=== PATIENT | female | born 1990 | race Caucasian/White ===

== ENCOUNTER 2024-11-14 20:56 | Inpatient (IN) ==
[2024-11-14 21:43] LABS: Hematocrit (blood only) 42.5 % (37.0-47.0); Hemoglobin 14.6 g/dl (12.0-16.0); Immature Granulocytes # (auto) 0.02 K/uL (0.01-0.20); Immature Granulocytes % (auto) 0.3 %; Mean Corpuscular Hemoglobin 30.2 pg (25.0-34.0); Mean Corpuscular Volume 88.0 fL (80.0-100.0); Platelet Count 254 K/uL (130-400); RDW Standard Deviation 41.6 fL (36.4-46.3); Red Blood Count 4.83 M/uL (4.20-5.40); White Blood Count 7.64 K/ul (4.8-10.8)
[2024-11-14 22:01] LABS: Alanine Aminotransferase 61.0 U/L (7-52); Albumin Globulin Ratio 1.5 (0.9-2); Alkaline Phosphatase 68.0 U/L (34-104); Anion Gap 12.0 (3-11); Bilirubin,Total 0.8 mg/dl (0.2-1.0); Blood Urea Nitrogen 14.0 mg/dl (6-23); Calcium 9.6 mg/dl (8.6-10.3); Carbon Dioxide 24.0 mmol/L (21-32); Chloride 110.0 mmol/L (98-107); Creatinine Clr Calc Pharmacy 92.9 ml/min; Globulin 2.9 gm/dl (2.5-4.0); Glucose 127.0 mg/dl (70-99(Fasting)); Potassium 3.4 mmol/L (3.5-5.1); Sodium 146.0 mmol/L (136-145); Total Protein 7.3 gm/dl (6.0-8.3)
[2024-11-14] MEDS: ACETAMINOPHEN 325 MG TAB PO STA (22:14)
[2024-11-14] MEDS: SODIUM CHLORIDE 0.9% 1,000 ML IV ONE (22:14)
[2024-11-14 22:18] LABS: Creatine Kinase 70.0 U/L (26-192); Magnesium 2.0 mg/dl (1.7-2.4)
[2024-11-14 22:20] LABS: Pregnancy Test, Serum Negative (Negative)
[2024-11-14 22:33] LABS: Thyroid Stimulating Hormone 0.113 uIu/ml (0.300-4.500)
[2024-11-14] MEDS: DROPERIDOL 5 MG/2 ML VIAL IV STA (22:55)
[2024-11-14 23:04] LABS: Amphetamines+Metham, Urine Neg (Neg); MDMA (Ecstacy), Urine Neg (Neg); Marijuana, Urine Neg (Neg)
--- NOTE | 2024-11-14 23:21 | Emergency Department Note ---
History of Present Illness General Chief complaint: Detox Request Stated complaint: ALC WITHDRAWL Time Seen by Provider: 11/14/24 21:29 History of Present Illness This 34-year-old female who is homeless from [place] presents ER requesting detox. Patient states she uses trank, crack cocaine and fentanyl. She last used yesterday. Patient denies chest pain, dyspnea, abdominal pain, flulike illness. She states she smokes all of her drugs. Patient wants to be medically admitted for detox. She does not want to go to a rehab facility. Home Medications Medication Instructions Recorded Confirmed Type No Known Home Medications 11/14/24 11/14/24 History Allergies Allergy/AdvReac Type Severity Reaction Status Date / Time hydrocodone [From Vicodin] AdvReac Intermediate Nausea Verified 11/14/24 23:00 Past Med/Surg History Problem List (Updated 11/14/24 @ 23:21 by Criss Walker PA-C) Candidiasis (Acute) Polysubstance abuse (Acute) Social History Smoking Status: Current every day smoker Tobacco Type: Cigarettes Hx Substance Use: Yes Preferred Language: [place] Feels Safe at Home: Yes Review of Systems A total of 10 systems reviewed and were otherwise negative Physical Exam Vital Signs Vital Signs - 24 hr 11/14/24 21:01 11/14/24 21:14 11/14/24 21:30 Temperature 37.3 C Temperature Source Oral Pulse Rate 66 76 Pulse Rate from SpO2 Sensor 75 Pulse Rhythm Regular Pulse Strength Normal Respiratory Rate 18 22 Respiratory Effort / Characteristics Non-Labored Spontaneous Respiratory Depth Normal Respiratory Pattern Regular Blood Pressure 154/95 H 137/69 Blood Pressure Mean 114 106 Blood Pressure Position Lying Pulse Oximetry 100 100 99 Oxygen Delivery Method Room Air Room Air Room Air Oxygen Flow Rate 0 Sepsis Recent Fever Within 48 Hours No Sepsis New/Unexplained Change in Mental Status N/A Sepsis Action Taken by Nursing No Action Required 11/14/24 21:33 11/14/24 21:45 11/14/24 21:45 Temperature 36.9 C Temperature Source Oral Pulse Rate 74 76 Pulse Rate from SpO2 Sensor 76 Pulse Rhythm Pulse Strength Respiratory Rate 22 Respiratory Effort / Characteristics Respiratory Depth Respiratory Pattern Blood Pressure 130/76 Blood Pressure Mean 94 Blood Pressure Position Pulse Oximetry 99 Oxygen Delivery Method Room Air Oxygen Flow Rate Sepsis Recent Fever Within 48 Hours Sepsis New/Unexplained Change in Mental Status Sepsis Action Taken by Nursing 11/14/24 22:12 11/14/24 22:30 11/14/24 23:06 Temperature 36.7 C Temperature Source Oral Pulse Rate 90 92 H Pulse Rate from SpO2 Sensor 90 90 Pulse Rhythm Pulse Strength Respiratory Rate 22 20 Respiratory Effort / Characteristics Respiratory Depth Respiratory Pattern Blood Pressure 141/101 H 151/99 H Blood Pressure Mean 110 116 Blood Pressure Position Pulse Oximetry 99 99 Oxygen Delivery Method Room Air Room Air Oxygen Flow Rate Sepsis Recent Fever Within 48 Hours Sepsis New/Unexplained Change in Mental Status Sepsis Action Taken by Nursing 11/14/24 23:09 11/14/24 23:30 11/15/24 00:00 Temperature Temperature Source Pulse Rate 109 H 89 105 H Pulse Rate from SpO2 Sensor 109 H 88 107 H Pulse Rhythm Pulse Strength Respiratory Rate 22 22 22 Respiratory Effort / Characteristics Respiratory Depth Respiratory Pattern Blood Pressure 146/84 H 142/86 H 148/84 H Blood Pressure Mean 104 108 105 Blood Pressure Position Pulse Oximetry 100 100 100 Oxygen Delivery Method Room Air Room Air Room Air Oxygen Flow Rate Sepsis Recent Fever Within 48 Hours Sepsis New/Unexplained Change in Mental Status Sepsis Action Taken by Nursing 11/15/24 00:33 11/15/24 01:06 Temperature Temperature Source Pulse Rate 120 H 104 H Pulse Rate from SpO2 Sensor 120 H 102 H Pulse Rhythm Pulse Strength Respiratory Rate 22 22 Respiratory Effort / Characteristics Respiratory Depth Respiratory Pattern Blood Pressure 161/96 H 155/86 H Blood Pressure Mean 117 109 Blood Pressure Position Pulse Oximetry 98 100 Oxygen Delivery Method Room Air Room Air Oxygen Flow Rate Sepsis Recent Fever Within 48 Hours Sepsis New/Unexplained Change in Mental Status Sepsis Action Taken by Nursing VITALS: Vitals are noted on the nurse's note and reviewed by myself. Vital signs stable. GENERAL: White female disheveled, in no acute distress, nondiaphoretic, well- developed well-nourished. SKIN: Abdomen with candidiasis, the rest of the skin was without rashes, erythema, edema, or bruising. There is no tenting of the skin. Capillary reflex less than 2 seconds. HEAD: Normocephalic atraumatic. EARS: External auditory canals clear EYES: Pupils equal round and reactive to light and accommodation. Conjunctivae without injection, sclerae without icterus. Extraocular movements intact. NOSE: Patent, no discharge. MOUTH: Mucous membranes moist. Pharynx without erythema or exudate. Uvula midline. Airway patent. Tongue does not deviate. NECK: Supple without nuchal rigidity. No lymphadenopathy. No thyromegaly. Cervical spine is nontender. No JVD. HEART: Regular rate and rhythm LUNGS: Clear to auscultation bilaterally without wheezes, rales or rhonchi. No retractions or accessory muscle use. ABDOMEN: Positive bowel sounds x 4. Normal tympanic percussion. Soft, nontender, without masses or organomegaly. Schmidt sign negative. No guarding or rebound tenderness. No CVA tenderness MUSCULOSKELETAL: No muscle atrophy, erythema, or edema noted. NEURO: Patient was alert and oriented to person place and time. Normal sensation to light and sharp touch. No focal neurological deficits. Course Administered Medications Potassium Chloride 20 meq/ (Lactated Ringer's) 1,010 mls @ 60 mls/hr IV .[id number] ONE Stop: 11/15/24 17:19 Last Admin: 11/15/24 00:39 Dose: 60 mls/hr Documented By: JUSTYN Discontinued Medications Acetaminophen (Acetaminophen 325 Mg Tab) 650 mg PO NOW STA Stop: 11/14/24 21:58 Last Admin: 11/14/24 22:14 Dose: 650 mg Documented By: JUSTYN Droperidol (Droperidol 5 Mg/2 Ml Vial) 1.25 mg IV ONE STA Stop: 11/14/24 22:42 Last Admin: 11/14/24 22:55 Dose: 1.25 mg Documented By: JUSTYN Sodium Chloride (Nss) 1,000 mls @ 999 mls/hr IV .[id number] ONE Stop: 11/14/24 22:57 Last Infusion: 11/14/24 23:15 Dose: Infused Documented By: Admin: 11/14/24 22:14 Dose: 999 mls/hr Documented By: JUSTYN Ioversol (Optiray 320 125ml) 125 ml IV ONCE ONE Stop: 11/14/24 23:59 Last Admin: 11/14/24 23:59 Dose: 118 ml Documented By: KANDIS Lorazepam (Lorazepam 2 Mg/1 Ml Vial) 0.25 mg IV NOW STA Stop: 11/15/24 00:46 Last Admin: 11/15/24 00:58 Dose: 0.25 mg Documented By: JUSTYN Medical Decision Making Medical Records Attestation: I reviewed the patient's medical records. Home Medications Current Medication List: was personally reviewed by me Laboratory Data Attestation: I reviewed the patient's lab results. 11/14/24 21:08 11/14/24 21:08 Lab Results 11/14/24 11/14/24 11/14/24 Range/Units 21:08 22:55 Unknown WBC 7.64 (4.8-10.8) K/ul RBC 4.83 (4.20-5.40) M/uL Hgb 14.6 (12.0-16.0) g/dl Hct 42.5 (37.0-47.0) % MCV 88.0 (80.0-100.0) fL MCH 30.2 (25.0-34.0) pg MCHC 34.4 (32.0-36.0) g/dL RDW Std Deviation 41.6 (36.4-46.3) fL RDW Coeff of Arsenio 13.0 (11.5-14.5) % Plt Count 254 (130-400) K/uL MPV 9.7 (9.4-12.4) fL Immature Gran % (Auto) 0.3 % Neut % (Auto) 85.9 % Lymph % (Auto) 9.8 % [place] % (Auto) 3.7 % Eos % (Auto) 0.0 % Baso % (Auto) 0.3 % Neut # (Auto) 6.57 H (1.40-6.50) K/uL Lymph # (Auto) 0.75 L (1.20-3.40) K/uL [place] # (Auto) 0.28 (0.11-0.59) K/uL Eos # (Auto) 0.00 (0.00-0.50) K/uL Baso # (Auto) 0.02 (0.00-0.20) K/uL Immature Gran # (Auto) 0.02 (0.01-0.20) K/uL Sodium 146 H (136-145) mmol/L Potassium 3.4 L (3.5-5.1) mmol/L Chloride 110 H (98-107) mmol/L Carbon Dioxide 24 (21-32) mmol/L Anion Gap 12 H (3-11) BUN 14 (6-23) mg/dl Creatinine 0.61 (0.6-1.2) mg/dl Est Cr Clr Drug Dosing 92.9 ml/min eGFR 120.24 BUN/Creatinine Ratio 23.0 H (10-20) Glucose 127 H (70-99(Fasting)) mg/dl Lactate 1.9 (0.4-2.0) mmol/L Calcium 9.6 (8.6-10.3) mg/dl Magnesium 2.0 (1.7-2.4) mg/dl Total Bilirubin 0.8 (0.2-1.0) mg/dl AST 32 (13-39) U/L ALT 61 H (7-52) U/L Alkaline Phosphatase 68 (34-104) U/L Total Creatine Kinase 70 (26-192) U/L Total Protein 7.3 (6.0-8.3) gm/dl Albumin 4.4 (3.4-5.0) gm/dl Globulin 2.9 (2.5-4.0) gm/dl Albumin/Globulin Ratio 1.5 (0.9-2) TSH 0.113 L (0.300-4.500) uIu/ml Free T4 0.85 (0.61-1.60) ng/dl Prolactin 8.92 ng/ml HCG, Qual Negative (Negative) Urine Opiates Screen Neg (Neg) Ur Methadone, Qual Neg (Neg) Urine Fentanyl Screen Pos H (Neg) Urine Barbiturates Neg (Neg) Ur Phencyclidine (PCP) Neg (Neg) U Amphetamin/Meth Scrn Neg (Neg) MDMA (Ecstasy) Screen Neg (Neg) U Benzodiazepines Scrn Pos H (Neg) Ur Cocaine Metabolite Pos H (Neg) U Marijuana (THC) Screen Neg (Neg) Imaging Data Attestation: I personally reviewed and interpreted this imaging study as follows: Radiologist's Impression: Head CT 11/14/24 23:12 EXAM: CT head/brain wo con CLINICAL HISTORY: sz, rodriguez TECHNIQUE: Multiple axial images are obtained from the skull base to the vertex without contrast. CT scan was performed according to ALARA (as low as reasonably achievable). COMPARISON: None. FINDINGS: The brain shows normal morphology, attenuation, and volume for age. No evidence of space occupying lesion, hemorrhage, edema, mass effect, midline shift, extra axial collection, or hydrocephalus is noted. Ventricles, sulci, and basal cisterns are symmetric and normal in size and configuration. The chase-white matter differentiation is preserved. Visualized paranasal sinuses and mastoid air cells are well aerated. Orbital contents are within normal limits. Bony structures are intact. IMPRESSION: 1. No evidence of acute intracranial abnormality is demonstrated Electronically signed by Cali Vance 11-15-2024 01:04 AM Abdomen/Pelvis CT 11/14/24 23:13 EXAM: CT abd pelvis IV con only CLINICAL HISTORY: abd pain TECHNIQUE: Contiguous axial images were obtained from the level of the diaphragm to the pubic symphysis with intravenous contrast. Coronal and sagittal reconstructions were likewise performed and indicated to increase the sensitivity for detecting clinically relevant pathology. If IV contrast material had not been administered, the likelihood of detecting abnormalities relevant to the patient's condition would have been substantially decreased. CT scan was performed according to ALARA (as low as reasonably achievable). COMPARISON: None. FINDINGS: The visualized lung bases are clear. The liver is normal in size and attenuation. No focal liver lesions are seen. There is no intra or extrahepatic biliary ductal dilatation. Hepatic vasculature is patent. The gallbladder is present. The spleen, pancreas, and adrenal glands are unremarkable. The kidneys are normal in size and attenuation. There is no hydronephrosis or perinephric fat stranding. No renal calculi or renal masses are identified. Small simple right renal cortical cyst. The ureters are normal in caliber and no ureteral calculi are seen. The bladder is normal in contour. Pelvic viscera are unremarkable. No focal or diffuse bowel wall thickening or evidence of bowel obstruction is identified. No imaging evidence of appendicitis. Abdominal and pelvic vasculature is patent. No adenopathy or fluid collections are seen. No aggressive appearing osseous lesions are identified. Colonic fecal and gaseous distension diffuse subcutaneous fat stranding is seen in pelvis and upper thighs IMPRESSION: Small simple right renal cortical cyst.- Bosniak type I . Colonic fecal and gaseous distension - possibility of constipation. No acute intra-abdominal abnormalities seen. Electronically signed by Cali Vance 11-15-2024 01:29 AM Chest CTA 11/14/24 23:13 EXAM: CT angio chest PE protocol CLINICAL HISTORY: cp sob TECHNIQUE: Contiguous axial images were obtained from the neck base through the upper abdomen following intravenous administration of iodinated contrast material. Angiographic images were processed, 3D MIP images were acquired for interpretation. If IV contrast material had not been administered, the likelihood of detecting abnormalities relevant to the patient's condition would have been substantially decreased. Coronal and sagittal 3-D MIPs were likewise performed and indicated to increase the sensitivity of detectin diffuse clinically relevant pathology. CT scan was performed according to ALARA (as low as reasonably achievable). COMPARISON: None. FINDINGS: Adequate contrast bolus without evidence of pulmonary embolism. The central airways are patent. The lungs are clear. No pleural effusion. The heart, aorta, and pulmonary arteries are of normal size and configuration. There are no appreciable coronary artery and aortic atherosclerotic calcifications. No pericardial effusion is identified. The thyroid is unremarkable. No mediastinal, hilar, or axillary lymphadenopathy is noted. No suspicious lytic or sclerotic osseous lesions are identified. IMPRESSION: 1. No evidence of pulmonary embolism or pulmonary disease. Electronically signed by Cali Vance 11-15-2024 01:06 AM [facility] Narrative Prior records/ancillary studies reviewed and summarized above. Nursing notes reviewed. Additional history obtained from nursing The patient's history was concerning for requesting detox from polysubstance abuse. Differential diagnosis: Etiologies such as polysubstance abuse, metabolic, infection, hypo/hyperglycemia, electrolyte abnormalities, cardiac sources, intracerebral event, toxicologic, neurologic, as well as others were entertained. Physical examination: As above. ER treatment provided: IV Lock An order was placed for continuous cardiac monitoring. The monitor shows a rate of 60-100 with a sinus rhythm per my interpretation. IV fluids, droperidol was ordered On reassessment the patient felt better. Diagnostics interpretation by me: ECG: Ordered for polysubstance abuse EKG: Normal sinus, incomplete right bundle, no acute ST-T wave changes, rate 66. Impression normal sinus rhythm incomplete right bundle branch block independently interpreted by myself The labs Independently Interpreted by myself revealed no worrisome leukocytosis, negative hCG, negative prolactin, mild hyperglycemia that DKA Positive drug screen Imaging studies: Imaging was reviewed and read by radiology Consultation: A consultation was placed with the hospitalist. The case was discussed and diagnostics were reviewed. The patient was evaluated in the ER for further treatment. Exam and history seem consistent with detox request from polysubstance abuse. Medicine was consulted case discussed. She will be evaluated for possible admission. By the evaluation outlined above emergent etiologies such as infection, electrolyte abnormalities, cardiac sources, intracerebral event, neurologic, abnormalities blood glucose, metabolic, as well as others were deemed relatively unlikely. The pt informed about the findings as listed above. All questions were answered and pleased with the treatment. The chart was completed utilizing [employer] Speech voice recognition software. Grammatical errors, random word insertions, pronoun errors, and incomplete sentences are an occassional consequence of this system due to software limitations, ambient noise, and hardware issues. Any formal questions or concerns about the content, text, or information contained within the body of this dictation should be directly addressed to the physician clinic office assistant for clarification. Impression & Plan Polysubstance abuse, Candidiasis Discharge Plan Visit Data Chief Complaint: Detox Request Stated Complaint: ALC WITHDRAWL ED Provider: Brittany Rodríguez ED Midlevel Provider: Criss Walker Discharge Problem: Polysubstance abuse, Candidiasis Patient Disposition: Being Evaluated by Hospitalist Condition: Good Forms Stand Alone Forms: My [facility], Suicide Prevention Resources Prescriptions Prescriptions: No Action No Known Home Medications Referrals Referrals: PCP,NO [Primary Care Provider] -
[2024-11-14] MEDS: OPTIRAY 320 125ml IV ONE (23:59)
[2024-11-15] MEDS: POTASSIUM CHLORIDE 20 MEQ in LACTATED RINGER'S 1,000 ML IV ONE (00:39)
--- NOTE | 2024-11-15 01:04 | CT Scan Report ---
EXAM: CT head/brain wo con CLINICAL HISTORY: sz, rodriguez TECHNIQUE: Multiple axial images are obtained from the skull base to the vertex without contrast. CT scan was performed according to ALARA (as low as reasonably achievable). COMPARISON: None. FINDINGS: The brain shows normal morphology, attenuation, and volume for age. No evidence of space occupying lesion, hemorrhage, edema, mass effect, midline shift, extra axial collection, or hydrocephalus is noted. Ventricles, sulci, and basal cisterns are symmetric and normal in size and configuration. The chase-white matter differentiation is preserved. Visualized paranasal sinuses and mastoid air cells are well aerated. Orbital contents are within normal limits. Bony structures are intact. IMPRESSION: 1. No evidence of acute intracranial abnormality is demonstrated Electronically signed by Cali Vance 11-15-2024 01:04 AM
--- NOTE | 2024-11-15 01:06 | CT Scan Report ---
EXAM: CT angio chest PE protocol CLINICAL HISTORY: cp sob TECHNIQUE: Contiguous axial images were obtained from the neck base through the upper abdomen following intravenous administration of iodinated contrast material. Angiographic images were processed, 3D MIP images were acquired for interpretation. If IV contrast material had not been administered, the likelihood of detecting abnormalities relevant to the patient's condition would have been substantially decreased. Coronal and sagittal 3-D MIPs were likewise performed and indicated to increase the sensitivity of detectin diffuse clinically relevant pathology. CT scan was performed according to ALARA (as low as reasonably achievable). COMPARISON: None. FINDINGS: Adequate contrast bolus without evidence of pulmonary embolism. The central airways are patent. The lungs are clear. No pleural effusion. The heart, aorta, and pulmonary arteries are of normal size and configuration. There are no appreciable coronary artery and aortic atherosclerotic calcifications. No pericardial effusion is identified. The thyroid is unremarkable. No mediastinal, hilar, or axillary lymphadenopathy is noted. No suspicious lytic or sclerotic osseous lesions are identified. IMPRESSION: 1. No evidence of pulmonary embolism or pulmonary disease. Electronically signed by Cali Vance 11-15-2024 01:06 AM
--- NOTE | 2024-11-15 01:30 | CT Scan Report ---
EXAM: CT abd pelvis IV con only CLINICAL HISTORY: abd pain TECHNIQUE: Contiguous axial images were obtained from the level of the diaphragm to the pubic symphysis with intravenous contrast. Coronal and sagittal reconstructions were likewise performed and indicated to increase the sensitivity for detecting clinically relevant pathology. If IV contrast material had not been administered, the likelihood of detecting abnormalities relevant to the patient's condition would have been substantially decreased. CT scan was performed according to ALARA (as low as reasonably achievable). COMPARISON: None. FINDINGS: The visualized lung bases are clear. The liver is normal in size and attenuation. No focal liver lesions are seen. There is no intra or extrahepatic biliary ductal dilatation. Hepatic vasculature is patent. The gallbladder is present. The spleen, pancreas, and adrenal glands are unremarkable. The kidneys are normal in size and attenuation. There is no hydronephrosis or perinephric fat stranding. No renal calculi or renal masses are identified. Small simple right renal cortical cyst. The ureters are normal in caliber and no ureteral calculi are seen. The bladder is normal in contour. Pelvic viscera are unremarkable. No focal or diffuse bowel wall thickening or evidence of bowel obstruction is identified. No imaging evidence of appendicitis. Abdominal and pelvic vasculature is patent. No adenopathy or fluid collections are seen. No aggressive appearing osseous lesions are identified. Colonic fecal and gaseous distension diffuse subcutaneous fat stranding is seen in pelvis and upper thighs IMPRESSION: Small simple right renal cortical cyst.- Bosniak type I . Colonic fecal and gaseous distension - possibility of constipation. No acute intra-abdominal abnormalities seen. Electronically signed by Cali Vance 11-15-2024 01:29 AM
[2024-11-15 01:55] LABS: Lipase 94.0 U/L (11-82)
--- NOTE | 2024-11-15 03:00 | History & Physical Report ---
Date of Service November 15, 2024 Assessment & Plan (1) Breakthrough seizure: Plan: Assessment and plan below following discussion of case with ED provider and reviewing patient history/pertinent normal/abnormal diagnostic test results. Recurrent seizures Polysubstance abuse withdrawal versus seizure disorder Situational hypertension Hypokalemia Hyperglycemia ro DM Malnutrition Re: Low BMI Admit to PCU Seizure precautions Ativan as needed active seizures EEG, Brain MRI for seizure workup Neurology consult Re: Recurrent seizures Psych consult RE substance abuse Replace potassium Check hemoglobin A1c Obtain records from [facility] Social service re: contact tracing DVT prophylaxis with heparin subcu Full code Text document was generated using [employer] recognition software. It may contain grammatical or spelling errors. Kindly contact undersigned for clarification of any documentation item in question. History of Present Illness Chief Complaint: Seizures as per records Primary Care Provider: NO PCP History obtained from ED provider and records. Limited history from patient secondary to obtunded state. Medical history significant for substance abuse. Patient is a homeless resident of [place] who was recently confined at [facility] for detox from tranq and opioids. Patient claims she was discharged from [facility] and directed to rehab facility via taxi with an address in [place], [place]. EMS called outside [facility] because patient found to have possible seizures outside [facility]. Seizure terminated by [facility]. Upon arrival at the ER, patient told staff that she gets seizures whenever in detox. Denied EtOH abuse to ED provider. Patient complaining of achy headache, chest pain/SOB, abdominal pain. Demanding for narcotics and benzos as per ED provider. IV droperidol administered at the ER. Patient currently obtunded. Medical History/Surgical History/Family History/Personal/Social history : Could not be obtained due to obtunded state Allergies Allergy/AdvReac Type Severity Reaction Status Date / Time hydrocodone [From Vicodin] AdvReac Intermediate Nausea Verified 11/14/24 23:00 Home Medications Medication Instructions Recorded Confirmed Type No Known Home Medications 11/14/24 11/14/24 History Past Med/Surg History Problem List (Updated 11/15/24 @ 07:10 by Favio Chavarria MD) Breakthrough seizure Candidiasis (Acute) Polysubstance abuse (Acute) Social History Smoking Status: Current every day smoker Tobacco Type: Cigarettes Hx Substance Use: Yes Preferred Language: Greek Feels Safe at Home: Yes Review of Systems Review of Systems: Could not be reliably obtained secondary to obtunded state Physical Exam 2 Physical Exam: GENERAL: Obtunded, underweight, looks older than stated age, tremulous, no respiratory distress SKIN: Normal color, warm HEENT: [place] palpebral conjunctivae, no ptosis, dry buccal mucosa NECK : Supple, no tenderness CHEST : Decreased breath sounds, no tenderness HEART : Tachycardic, no obvious murmurs ABDOMEN: Some distention, central abdominal tenderness EXTREMITIES : No LE swelling/tenderness, palpable pulses, no other conspicuous deformities noted NEUROLOGIC : Obtunded, no facial asymmetry, tremulous, gait and stance not asse ssed Results & Data Results & Data Vital Signs (Past 12 Hours) Vital Signs Temp Pulse Resp BP Pulse Ox O2 Del Method O2 Flow Rate 11/15/24 02:30 114 H 22 138/84 98 Room Air 11/15/24 02:30 37.0 C 11/15/24 02:00 113 H 19 147/80 H 100 Room Air 11/15/24 01:33 116 H 19 140/73 99 Room Air 11/15/24 01:17 114 H 11/15/24 01:06 104 H 22 155/86 H 100 Room Air 11/15/24 00:33 120 H 22 161/96 H 98 Room Air 11/15/24 00:00 105 H 22 148/84 H 100 Room Air 11/14/24 23:30 89 22 142/86 H 100 Room Air 11/14/24 23:09 109 H 22 146/84 H 100 Room Air 11/14/24 23:06 36.7 C 11/14/24 22:30 92 H 20 151/99 H 99 Room Air 11/14/24 22:12 90 22 141/101 H 99 Room Air 11/14/24 21:45 76 22 130/76 99 Room Air 11/14/24 21:45 36.9 C 11/14/24 21:33 74 11/14/24 21:30 76 22 137/69 99 Room Air 11/14/24 21:14 100 Room Air 0 11/14/24 21:01 37.3 C 66 18 154/95 H 100 Room Air Laboratory Results Laboratory Results WBC 7.64 K/ul (4.8-10.8) 11/14/24 21:08 RBC 4.83 M/uL (4.20-5.40) 11/14/24 21:08 Hgb 14.6 g/dl (12.0-16.0) 11/14/24 21:08 Hct 42.5 % (37.0-47.0) 11/14/24 21:08 MCV 88.0 fL (80.0-100.0) 11/14/24 21:08 MCH 30.2 pg (25.0-34.0) 11/14/24 21:08 MCHC 34.4 g/dL (32.0-36.0) 11/14/24 21:08 RDW Std Deviation 41.6 fL (36.4-46.3) 11/14/24 21:08 RDW Coeff of Arsenio 13.0 % (11.5-14.5) 11/14/24 21:08 Plt Count 254 K/uL (130-400) 11/14/24 21:08 MPV 9.7 fL (9.4-12.4) 11/14/24 21:08 Immature Gran % (Auto) 0.3 % 11/14/24 21:08 Neut % (Auto) 85.9 % 11/14/24 21:08 Lymph % (Auto) 9.8 % 11/14/24 21:08 [place] % (Auto) 3.7 % 11/14/24 21:08 Eos % (Auto) 0.0 % 11/14/24 21:08 Baso % (Auto) 0.3 % 11/14/24 21:08 Neut # (Auto) 6.57 K/uL (1.40-6.50) H 11/14/24 21:08 Lymph # (Auto) 0.75 K/uL (1.20-3.40) L 11/14/24 21:08 [place] # (Auto) 0.28 K/uL (0.11-0.59) 11/14/24 21:08 Eos # (Auto) 0.00 K/uL (0.00-0.50) 11/14/24 21:08 Baso # (Auto) 0.02 K/uL (0.00-0.20) 11/14/24 21:08 Immature Gran # (Auto) 0.02 K/uL (0.01-0.20) 11/14/24 21:08 Sodium 146 mmol/L (136-145) H 11/14/24 21:08 Potassium 3.4 mmol/L (3.5-5.1) L 11/14/24 21:08 Chloride 110 mmol/L (98-107) H 11/14/24 21:08 Carbon Dioxide 24 mmol/L (21-32) 11/14/24 21:08 Anion Gap 12 (3-11) H 11/14/24 21:08 BUN 14 mg/dl (6-23) 11/14/24 21:08 Creatinine 0.61 mg/dl (0.6-1.2) 11/14/24 21:08 Est Cr Clr Drug Dosing 92.9 ml/min 11/14/24 21:08 eGFR 120.24 11/14/24 21:08 BUN/Creatinine Ratio 23.0 (10-20) H 11/14/24 21:08 Glucose 127 mg/dl (70-99(Fasting)) H 11/14/24 21:08 Lactate 1.9 mmol/L (0.4-2.0) 11/14/24 22:55 Calcium 9.6 mg/dl (8.6-10.3) 11/14/24 21:08 Magnesium 2.0 mg/dl (1.7-2.4) 11/14/24 21:08 Total Bilirubin 0.8 mg/dl (0.2-1.0) 11/14/24 21:08 AST 32 U/L (13-39) 11/14/24 21:08 ALT 61 U/L (7-52) H 11/14/24 21:08 Alkaline Phosphatase 68 U/L (34-104) 11/14/24 21:08 Total Creatine Kinase 70 U/L (26-192) 11/14/24 21:08 Troponin I High Sens 2.5 pg/ml (0-14) 11/14/24 21:08 Total Protein 7.3 gm/dl (6.0-8.3) 11/14/24 21:08 Albumin 4.4 gm/dl (3.4-5.0) 11/14/24 21:08 Globulin 2.9 gm/dl (2.5-4.0) 11/14/24 21:08 Albumin/Globulin Ratio 1.5 (0.9-2) 11/14/24 21:08 Lipase 94 U/L (11-82) H 11/14/24 21:08 TSH 0.113 uIu/ml (0.300-4.500) L 11/14/24 21:08 Free T4 0.85 ng/dl (0.61-1.60) 11/14/24 21:08 Prolactin 8.92 ng/ml 11/14/24 21:08 HCG, Qual Negative (Negative) 11/14/24 21:08 Urine Opiates Screen Neg (Neg) 11/14/24 Unknown Ur Methadone, Qual Neg (Neg) 11/14/24 Unknown Urine Fentanyl Screen Pos (Neg) H 11/14/24 Unknown Urine Barbiturates Neg (Neg) 11/14/24 Unknown Ur Phencyclidine (PCP) Neg (Neg) 11/14/24 Unknown U Amphetamin/Meth Scrn Neg (Neg) 11/14/24 Unknown MDMA (Ecstasy) Screen Neg (Neg) 11/14/24 Unknown U Benzodiazepines Scrn Pos (Neg) H 11/14/24 Unknown Ur Cocaine Metabolite Pos (Neg) H 11/14/24 Unknown U Marijuana (THC) Screen Neg (Neg) 11/14/[address] 11/14/24 23:12 EXAM: CT head/brain wo con CLINICAL HISTORY: sz, rodriguez TECHNIQUE: Multiple axial images are obtained from the skull base to the vertex without contrast. CT scan was performed according to ALARA (as low as reasonably achievable). COMPARISON: None. FINDINGS: The brain shows normal morphology, attenuation, and volume for age. No evidence of space occupying lesion, hemorrhage, edema, mass effect, midline shift, extra axial collection, or hydrocephalus is noted. Ventricles, sulci, and basal cisterns are symmetric and normal in size and configuration. The chase-white matter differentiation is preserved. Visualized paranasal sinuses and mastoid air cells are well aerated. Orbital contents are within normal limits. Bony structures are intact. IMPRESSION: 1. No evidence of acute intracranial abnormality is demonstrated Electronically signed by Cali Vance 11-15-2024 01:04 AM Abdomen/Pelvis CT 11/14/24 23:13 EXAM: CT abd pelvis IV con only CLINICAL HISTORY: abd pain TECHNIQUE: Contiguous axial images were obtained from the level of the diaphragm to the pubic symphysis with intravenous contrast. Coronal and sagittal reconstructions were likewise performed and indicated to increase the sensitivity for detecting clinically relevant pathology. If IV contrast material had not been administered, the likelihood of detecting abnormalities relevant to the patient's condition would have been substantially decreased. CT scan was performed according to ALARA (as low as reasonably achievable). COMPARISON: None. FINDINGS: The visualized lung bases are clear. The liver is normal in size and attenuation. No focal liver lesions are seen. There is no intra or extrahepatic biliary ductal dilatation. Hepatic vasculature is patent. The gallbladder is present. The spleen, pancreas, and adrenal glands are unremarkable. The kidneys are normal in size and attenuation. There is no hydronephrosis or perinephric fat stranding. No renal calculi or renal masses are identified. Small simple right renal cortical cyst. The ureters are normal in caliber and no ureteral calculi are seen. The bladder is normal in contour. Pelvic viscera are unremarkable. No focal or diffuse bowel wall thickening or evidence of bowel obstruction is identified. No imaging evidence of appendicitis. Abdominal and pelvic vasculature is patent. No adenopathy or fluid collections are seen. No aggressive appearing osseous lesions are identified. Colonic fecal and gaseous distension diffuse subcutaneous fat stranding is seen in pelvis and upper thighs IMPRESSION: Small simple right renal cortical cyst.- Bosniak type I . Colonic fecal and gaseous distension - possibility of constipation. No acute intra-abdominal abnormalities seen. Electronically signed by Cali Vance 11-15-2024 01:29 AM Chest CTA 11/14/24 23:13 EXAM: CT angio chest PE protocol CLINICAL HISTORY: cp sob TECHNIQUE: Contiguous axial images were obtained from the neck base through the upper abdomen following intravenous administration of iodinated contrast material. Angiographic images were processed, 3D MIP images were acquired for interpretation. If IV contrast material had not been administered, the likelihood of detecting abnormalities relevant to the patient's condition would have been substantially decreased. Coronal and sagittal 3-D MIPs were likewise performed and indicated to increase the sensitivity of detectin diffuse clinically relevant pathology. CT scan was performed according to ALARA (as low as reasonably achievable). COMPARISON: None. FINDINGS: Adequate contrast bolus without evidence of pulmonary embolism. The central airways are patent. The lungs are clear. No pleural effusion. The heart, aorta, and pulmonary arteries are of normal size and configuration. There are no appreciable coronary artery and aortic atherosclerotic calcifications. No pericardial effusion is identified. The thyroid is unremarkable. No mediastinal, hilar, or axillary lymphadenopathy is noted. No suspicious lytic or sclerotic osseous lesions are identified. IMPRESSION: 1. No evidence of pulmonary embolism or pulmonary disease. Electronically signed by Cali Vance 11-15-2024 01:06 AM Diagnostic Findings EKG as per my interpretation :Rate 65, NSR, normal axis, incomplete RBBB, T wave flattening inferior leads
[2024-11-15] MEDS ORDERED: KETOROLAC TROMETHAMINE 15 MG/ML VIAL IV PRN (03:28)
[2024-11-15] MEDS: METOCLOPRAMIDE HCL INJ 5 MG/ML 2 ML VIAL IV ONE (04:00)
[2024-11-15] MEDS: LABETALOL HCL IV 5 MG/ML 20ML IV STA (04:04)
[2024-11-15] MEDS: THIAMINE HCL 100 MG in SYRINGE 9 ML IV STA (04:13)
[2024-11-15 05:33] LABS: Hematocrit (blood only) 37.0 % (37.0-47.0); Hemoglobin 12.7 g/dl (12.0-16.0); Immature Granulocytes # (auto) 0.03 K/uL (0.01-0.20); Immature Granulocytes % (auto) 0.3 %; Mean Corpuscular Hemoglobin 30.3 pg (25.0-34.0); Mean Corpuscular Volume 88.3 fL (80.0-100.0); Platelet Count 264 K/uL (130-400); RDW Standard Deviation 42.1 fL (36.4-46.3); Red Blood Count 4.19 M/uL (4.20-5.40); White Blood Count 8.60 K/ul (4.8-10.8)
[2024-11-15] MEDS: HEPARIN SOD 5,000 UNIT/0.5 ML VIAL SQ SCH (05:36)
--- NOTE | 2024-11-15 06:50 | Communication Note ---
Date of Service: November 15, 2024 520A Patient noted by staff to have seizure-like episode. Involuntary shaking of the arms and legs. Involuntary eye movements as well. No tongue biting. Urinary incontinence noted Episode terminated by Ativan administration. BSG 110s. AP Recurrent seizure ? Alcohol withdrawal AWSS ranging from 11 to 18 since arrival at the ER as per RN. Patient however denied EtOH abuse upon query by ED provider. Phenobarbital protocol for alcohol withdrawal. 640A Patient later noted to be febrile. Follow UA Check blood cultures, lactic acid and procalcitonin
[2024-11-15] MEDS ORDERED: PHENobarbital PO Alcohol Withdrawal PO STA (06:51)
[2024-11-15] MEDS ORDERED: ACETAMINOPHEN 1,000 MG/100 ML VIAL IV STA (06:51)
[2024-11-15 07:54] LABS: Hemoglobin A1C 5.5 % (4.5-5.6)
[2024-11-15 08:02] LABS: Alanine Aminotransferase 47.0 U/L (7-52); Albumin Globulin Ratio 2.0 (0.9-2); Alkaline Phosphatase 53.0 U/L (34-104); Anion Gap 8.0 (3-11); Bilirubin,Total 0.9 mg/dl (0.2-1.0); Blood Urea Nitrogen 16.0 mg/dl (6-23); Calcium 8.8 mg/dl (8.6-10.3); Carbon Dioxide 24.0 mmol/L (21-32); Chloride 116.0 mmol/L (98-107); Creatinine Clr Calc Pharmacy 94.5 ml/min; Globulin 2.1 gm/dl (2.5-4.0); Glucose 129.0 mg/dl (70-99(Fasting)); Potassium 3.1 mmol/L (3.5-5.1); Sodium 148.0 mmol/L (136-145); Total Protein 6.2 gm/dl (6.0-8.3)
[2024-11-15] MEDS: ACETAMINOPHEN IV ONE (08:52)
[2024-11-15] MEDS: POTASSIUM CHLORIDE 20 MEQ in LACTATED RINGER'S 1,000 ML IV SCH (09:41)
--- NOTE | 2024-11-15 09:55 | Electrocardiogram Report ---
Test Reason : Blood Pressure : */* mmHG Vent. Rate : 66 BPM Atrial Rate : 66 BPM P-R Int : 112 ms QRS Dur : 92 ms QT Int : 428 ms P-R-T Axes : 71 23 14 degrees QTcB Int : 448 ms Normal sinus rhythm Incomplete right bundle branch block Borderline ECG No previous ECGs available Confirmed by Gutierrez Tse ([id number]) on 11/15/2024 9:55:08 AM Referred By: REFERRED SELF Confirmed By: Gutierrez Tse
[2024-11-15 11:24] LABS: Appearance Urine Clear (Clear); Glucose Urine UA Negative (Negative)
--- NOTE | 2024-11-15 12:06 | XRay Report ---
XR orbits for MRI CLINICAL HISTORY: Screening for foreign body for MRI COMPARISON STUDY: 11/14/2024 FINDINGS: No metallic foreign body seen at the orbits. IMPRESSION: No metallic foreign body seen at the orbits. ACT 112: Negative or not required by law. Electronically signed by: Bairon Silver M.D. 11/15/2024 12:05 PM
--- NOTE | 2024-11-15 15:54 | Hospitalist Progress Note ---
Date of Service November 15, 2024 Assessment & Plan (1) Breakthrough seizure: Plan: 34F with H active polysubstance abuse, seizure disorder who presents for detox. she was discharged from [facility] hospital and sent to rehab facility in area but refused to go. She subsequently had a seizure like episode in the ED #Seizure-like episode -[facility] no acute pathology -Multiple episodes overnight in ED on admission s/p IV ativan and phenobarb -She is currently drowsy and responds to painful stimuli and states her name. -No seizure like activity to author. no incontinence. evaluated tongue, no tongue lesions -Significant drug history with active alcohol abuse, tranquilizers, cocaine and fentanyl use -Unclear if these episodes were true seizures vs non epileptic behavioral spells (pseudoseizures) -She is certainly high risk of alcohol withdrawal seizures but if she was just hospitalized in [place], it is unlikely she would have withdrawal seizures so soon -There is low concern for subclincial status Plan -Await EEG report. Unfortunately Ceribell is not offered here -Hold further phenobarbital -Continue seizure precautions and prn ativan -Continue to monitor alcohol withdrawal -MRI brain -Appreciate neurology input #Fever -No leukocytosis. no evidence of sepsis -Procal is negative -No nuchal rigidity to suggest meningitis/encephalitis -UA clean -CTA chest, CT AP no acute pathology -Likely reactive -Observe off abx -Follow temp, WBC #Hypernatremia -Likely acute although no previous records are available yet -Waiting on records from [facility] -Suspect dehydration, looks dry on exam Plan -Continue gentle IVF -Recheck Na in AM #Hypokalemia -Mg normal -Replace and follow I spent a total of 50 minutes coordinating, documenting, and providing care for this patient excluding time spent in the performance of separately billed services. This included personally reviewing all current laboratories and imaging studies, medical reconciliation, outpatient chart review and discussion with specialists Admission and Anticipated Discharge Date Admission Date: November 15, 2024 Subjective Patient drowsy in ED c10 this AM. Re-evaluated patient at 1600 today, she remains drowsy but awakens to sternal rub and is able to tell author her name. Physical Exam Physical Exam: Vitals and labs reviewed General: frail, malnourished, appears older than stated age. NAD HEENT: EOMI, PERRLA Neck: Supple Cardiac: RRR no rubs gallops or murmurs Lungs: CTA no rhonchi wheezing or rales Abd: S NT ND BS positive : no lyles MSK: Full ROM. No obvious deformities Ext: No Edema cyanosis Skin: Warm, Dry Neuro: drowsy, responds to sternal rub. answers her name then quick falls back asleep. no tremors, asterixis Psych: calm Results & Data Results & Data Vital Signs (Past 12 Hours) Vital Signs Temp Pulse Pulse Resp BP BP Pulse Ox 11/15/24 15:00 91 H 33 H 159/98 H 99 11/15/24 14:40 37.7 C H 11/15/24 13:12 88 45 H 100 11/15/24 13:00 159/92 H 11/15/24 13:00 159/92 H 11/15/24 13:00 159/92 H 11/15/24 12:42 84 44 H 99 11/15/24 12:36 80 45 H 99 11/15/24 12:30 160/95 H 11/15/24 12:30 160/95 H 11/15/24 12:18 93 H 44 H 99 11/15/24 12:06 98 H 45 H 98 11/15/24 12:00 160/92 H 11/15/24 11:57 80 45 H 97 11/15/24 11:39 98 H 44 H 97 11/15/24 11:30 156/90 H 11/15/24 11:27 93 H 48 H 97 11/15/24 11:06 88 47 H 97 11/15/24 10:50 39.2 C H 102 H 50 H 150/95 H 96 11/15/24 09:38 37.3 C 108 H 46 H 157/96 H 98 11/15/24 08:48 93 H 38 H 149/78 H 11/15/24 07:14 96 H 11/15/24 06:43 38.3 C H 97 H 22 157/101 H 97 11/15/24 06:11 102 H 18 148/102 H 97 11/15/24 04:18 109 H 20 135/101 H 96 11/15/24 04:04 118 H 135/101 H O2 Del Method 11/15/24 15:00 Room Air 11/15/24 14:40 11/15/24 13:12 Room Air 11/15/24 13:00 11/15/24 13:00 11/15/24 13:00 11/15/24 12:42 Room Air 11/15/24 12:36 Room Air 11/15/24 12:30 11/15/24 12:30 11/15/24 12:18 Room Air 11/15/24 12:06 Room Air 11/15/24 12:00 11/15/24 11:57 Room Air 11/15/24 11:39 Room Air 11/15/24 11:30 11/15/24 11:27 Room Air 11/15/24 11:06 Room Air 11/15/24 10:50 Room Air 11/15/24 09:38 Room Air 11/15/24 08:48 11/15/24 07:14 11/15/24 06:43 Room Air 11/15/24 06:11 Room Air 11/15/24 04:18 Room Air 11/15/24 04:04 Laboratory Results Abnormal lab results 11/14/24 11/14/24 11/15/24 Range/Units 21:08 Unknown 04:21 RBC 4.19 L (4.20-5.40) M/uL Neut # (Auto) 6.57 H 7.27 H (1.40-6.50) K/uL Lymph # (Auto) 0.75 L 0.79 L (1.20-3.40) K/uL Sodium 146 H (136-145) mmol/L Potassium 3.4 L (3.5-5.1) mmol/L Chloride 110 H (98-107) mmol/L Anion Gap 12 H (3-11) BUN/Creatinine Ratio 23.0 H (10-20) Glucose 127 H (70-99(Fasting)) mg/dl POC Glucose (70-99) mg/dl ALT 61 H (7-52) U/L Globulin (2.5-4.0) gm/dl Lipase 94 H (11-82) U/L TSH 0.113 L (0.300-4.500) uIu/ml Urine Ketones (Negative) Urine Blood (Negative) Urine WBC (0-5) /hpf Ur Epithelial Cells (0-2) /hpf Urine Bacteria (None Seen) Urine Fentanyl Screen Pos H (Neg) U Benzodiazepines Scrn Pos H (Neg) Ur Cocaine Metabolite Pos H (Neg) 11/15/24 11/15/24 11/15/24 Range/Units 05:36 07:16 10:58 RBC (4.20-5.40) M/uL Neut # (Auto) (1.40-6.50) K/uL Lymph # (Auto) (1.20-3.40) K/uL Sodium 148 H (136-145) mmol/L Potassium 3.1 L (3.5-5.1) mmol/L Chloride 116 H (98-107) mmol/L Anion Gap (3-11) BUN/Creatinine Ratio 26.7 H (10-20) Glucose 129 H (70-99(Fasting)) mg/dl POC Glucose 113 H (70-99) mg/dl ALT (7-52) U/L Globulin 2.1 L (2.5-4.0) gm/dl Lipase (11-82) U/L TSH (0.300-4.500) uIu/ml Urine Ketones 3+ H (Negative) Urine Blood Trace-intact H (Negative) Urine WBC 21-50 H (0-5) /hpf Ur Epithelial Cells 6-10 H (0-2) /hpf Urine Bacteria 4+ H (None Seen) Urine Fentanyl Screen (Neg) U Benzodiazepines Scrn (Neg) Ur Cocaine Metabolite (Neg)
[2024-11-15] MEDS: GADOBUTROL 65ML VIAL IV ONE (18:14)
--- NOTE | 2024-11-15 19:08 | Magnetic Resonance Report ---
Clinical History: Seizures Technique: Multiple T1 and T2-weighted magnetic resonance images were obtained of the brain before and after the administration of intravenous gadolinium contrast Comparison is made to the CT dated 11/14/2024 Findings: There is no sign of acute or old infarction with normal-appearing diffusion weighted images. No definite focus of demyelination is seen. There is no definite sign of chase matter heterotopia, mesial temporal sclerosis, focal atrophy, vascular malformation, or neurocutaneous syndrome. No definite mass lesion is seen. There is no intracranial hemorrhage or other fluid collection. No midline shift or other form of herniation is seen. There is no hydrocephalus. Normal flow-voids are seen within the arteries of the [id number]. The orbits and paranasal sinuses appear normal. The mastoid air cells appear clear. Impression: Unremarkable MRI of the brain Electronically signed by Librado Galaviz 11-15-2024 7:08 PM
[2024-11-16 06:59] LABS: Hematocrit (blood only) 38.5 % (37.0-47.0); Hemoglobin 13.5 g/dl (12.0-16.0); Immature Granulocytes # (auto) 0.04 K/uL (0.01-0.20); Immature Granulocytes % (auto) 0.5 %; Mean Corpuscular Hemoglobin 31.1 pg (25.0-34.0); Mean Corpuscular Volume 88.7 fL (80.0-100.0); Platelet Count 215 K/uL (130-400); RDW Standard Deviation 42.9 fL (36.4-46.3); Red Blood Count 4.34 M/uL (4.20-5.40); White Blood Count 8.48 K/ul (4.8-10.8)
[2024-11-16 07:14] LABS: Anion Gap 8.0 (3-11); Blood Urea Nitrogen 19.0 mg/dl (6-23); Calcium 9.0 mg/dl (8.6-10.3); Carbon Dioxide 25.0 mmol/L (21-32); Chloride 109.0 mmol/L (98-107); Creatinine Clr Calc Pharmacy 127.7 ml/min; Glucose 96.0 mg/dl (70-99(Fasting)); Potassium 3.5 mmol/L (3.5-5.1); Sodium 142.0 mmol/L (136-145)
--- NOTE | 2024-11-16 11:05 | Neurology Consultation ---
Date of Consultation November 16, 2024 Assessment & Plan (1) Withdrawal seizures: -Recommend Ativan 2 mg IV with recurrent seizure -I offered the patient Keppra maintenance therapy while she continues to detox, however she declined medical treatment at this time -recommend start Keppra 500 mg twice daily if patient is agreeable, I did discuss rare side effects of increased anxiety/irritability with this medication -I did advise that patient may not need to be on this medication long-term if she is able to detox successfully -EEG ordered, can be done on routine basis as patient is alert and oriented at this time without symptoms -continue alcohol withdrawal protocols Telehealth Consultation Telehealth Information Telehealth Information: I performed this visit using a real-time telehealth connection between my location and the patients location ([facility]). After connecting through interactive tele-video, patient was identified by name and date of and/or wristband check.Patient (or authorized healthcare retail representative) was informed that this was a telemedicine visit and it was being conducted confidentially over secure lines. My office door was closed and no on e else was present in the room with me.Patient (or authorized healthcare retail representative) provided consent to proceed with the visit, expressed an understanding of privacy and security of the telemedicine visit, and gave permission to have a hospital retail representative in the room in order to assist with the visit and to conduct portions of the visit, as needed. I informed the patient (or authorized healthcare retail representative) that I reviewed their record and presented the opportunity for them to ask any questions regarding the visit today. The patient agreed to participate. History of Present Illness Reason for Consultation: concern for seizure Attending Physician: Jefferson Quezada MD History of Present Illness Simi Velasquez is a 34-year-old female with a past medical history of substance use disorder who presented to [facility] via ambulance after she was found down unresponsive with reported witnessed seizure like activity. The patient received Versed prior to arrival. She had multiple episodes during her admission and was treated with Ativan. She is on phenobarbital for alcohol withdrawal. I saw and examined the patient at bedside. She is alert and oriented but tired appearing. She denies history of seizures, however upon chart review she did report seizures with prior detox. She denies ever taking seizure medications. Denies history of childhood seizures, brain trauma, brain infection, stroke, or brain tumor. CT head and MRI brain were unremarkable. Labs reveal evidence of urinary tract infection. Allergies Allergy/AdvReac Type Severity Reaction Status Date / Time hydrocodone [From Vicodin] AdvReac Intermediate Nausea Verified 11/14/24 23:00 Home Medications Medication Instructions Recorded Confirmed Type No Known Home Medications 11/14/24 11/14/24 History Patient History Social History Smoking Status: Current every day smoker Tobacco Type: Cigarettes Hx Substance Use: Yes Preferred Language: Samoan Feels Safe at Home: Yes Review of Systems ROS reviewed and negative except as above. Physical Exam Physical Exam: General Appearance: Alert HEENT: anicteric sclera, no scleral injection Lungs: respirations appear comfortable, no obvious increased work of breathing Extremities: No cyanosis or fingernail clubbing Skin: No rashes in exposed skin areas Objective Limited due to Televideo encounter Physical Exam: General Appearance: Alert Neurological Examination: Mental status: Alert and oriented. No dysarthria. Cranial Nerves: Visual portillo intact. Extraocular movements intact with no nystagmus. Midline gaze. Face symmetric. Sensory: Normal sensory exam to light touch. Motor:Absent pronator drift. Strength: Antigravity in all extremities without drift. Cerebellar: Rapid alternating movements are intact. Results & Data Vital Signs (Past 12 Hours) Vital Signs Temp Pulse Pulse Resp BP Pulse Ox O2 Del Method 11/16/24 10:29 87 11/16/24 07:42 37.2 C 82 18 141/85 H 97 Room Air 11/16/24 07:15 Room Air 11/16/24 02:51 37.1 C 82 17 147/83 H 99 Room Air 11/15/24 23:09 37.6 C H 79 16 158/92 H 100 Room Air Laboratory Results Abnormal Lab Results 11/15/24 11/16/24 10:58 05:59 WBC 8.48 RBC 4.34 Hgb 13.5 Hct 38.5 MCV 88.7 MCH 31.1 MCHC 35.1 RDW Std Deviation 42.9 RDW Coeff of Arsenio 13.1 Plt Count 215 MPV 10.1 Immature Gran % (Auto) 0.5 Neut % (Auto) 66.0 Lymph % (Auto) 22.9 Cloud % (Auto) 10.4 Eos % (Auto) 0.0 Baso % (Auto) 0.2 Neut # (Auto) 5.60 Lymph # (Auto) 1.94 Cloud # (Auto) 0.88 H Eos # (Auto) 0.00 Baso # (Auto) 0.02 Immature Gran # (Auto) 0.04 Sodium 142 Potassium 3.5 Chloride 109 H Carbon Dioxide 25 Anion Gap 8 BUN 19 Creatinine 0.44 L Est Cr Clr Drug Dosing 127.7 eGFR 130.09 BUN/Creatinine Ratio 43.2 H Glucose 96 Calcium 9.0 Urine Color Yellow Urine Appearance Clear Urine pH 5.5 Ur Specific [place] >= 1.030 Urine Protein Negative Urine Glucose (UA) Negative Urine Ketones 3+ H Urine Blood Trace-intact H Urine Nitrite Negative Urine Bilirubin Negative Urine Urobilinogen Negative Ur Leukocyte Esterase Negative Urine RBC 0-2 Urine WBC 21-50 H Ur Epithelial Cells 6-10 H Urine Bacteria 4+ H Urine Comment Diagnostic Findings Brain MRI 11/15/24 07:02 Clinical History: Seizures Impression: Unremarkable MRI of the brain Electronically signed by Librado Galaviz 11-15-2024 7:08 PM Medications Administered Home Medications Medication Instructions Recorded Confirmed Last Taken No Known Home Medications 11/14/24 11/14/24 Unknown Active Medications Generic Name Dose Route Start Last Admin Trade Name Freq PRN Reason Stop Dose Admin Heparin Sodium (Porcine) 5,000 units 11/15/24 06:00 11/16/24 06:14 Heparin Sod 5,000 Unit/0.5 Ml Vial SQ 12/15/24 05:59 5,000 units Q8 JEREMY Administration Potassium Chloride 20 meq/ 1,010 mls @ 60 mls/hr 11/15/24 08:16 11/16/24 03:14 Lactated Ringer's IV 11/18/24 08:15 60 mls/hr .[id number] JEREMY Administration Lorazepam 1 mg 11/15/24 03:19 11/15/24 05:26 Lorazepam 2 Mg/1 Ml Vial IV 12/15/24 03:18 1 mg Q10M PRN Administration seizures
--- NOTE | 2024-11-16 13:09 | Hospitalist Progress Note ---
Date of Service November 16, 2024 Assessment & Plan (1) Breakthrough seizure: Plan: 34F with PMH active polysubstance abuse, seizure disorder who presents for detox. she was discharged from [facility] and sent to rehab facility in area but refused to go. She subsequently had a seizure like episode in the ED #Seizure-like episode -[facility] no acute pathology -Multiple episodes overnight in ED on admission s/p IV ativan and phenobarb Evaluated by neurology who recommended Keppra while on detox; patient refused. EEG ordered but can be done as outpatient. Continue seizure precautions Monitor for alcohol withdrawal #Fever -No leukocytosis. no evidence of sepsis -Procal is negative -No nuchal rigidity to suggest meningitis/encephalitis -UA clean -CTA chest, CT AP no acute pathology -Likely reactive Blood culture and urine culture negative #Hypernatremia -Resolved with hydration Plan -Continue gentle IVF -Recheck Na in AM #Hypokalemia -Replace and follow I spent a total of 50 minutes coordinating, documenting, and providing care for this patient excluding time spent in the performance of separately billed services. This included personally reviewing all current laboratories and imaging studies, medical reconciliation, outpatient chart review and discussion with specialists Please note the above document was generated using voice recognition software. It may contain grammatical, syntax or spelling errors. Any formal questions or c oncerns about the content, text or information contained within the body of this dictation should be directly addressed to the provider for clarification Admission and Anticipated Discharge Date Admission Date: November 15, 2024 Subjective Patient is alert oriented x 3; not in distress. Her withdrawal symptoms seems to be well-controlled; has some tremors. No hallucinations. She is answering all questions appropriately Review of Systems Review of Systems: All systems reviewed & are unremarkable except as noted in Subjective Physical Exam Physical Exam: Constitutional: Alert oriented x 3; not in distress. Respiratory: bilateral vesicular breath sound Cardiovascular: RRR, no murmur, no edema Vessels: no JVD or carotid bruit Chest: normal inspection of chest Abdomen: normal bowel sounds, soft, nontender, no hepatosplenomegaly Musculoskeletal: no cyanosis or clubbing, extremities motor strength 5/5 Skin: no rashes, warm and dry normal turgor Neurologic: PERRL, EOMI, accommodation nl, no face palsy, no dysarthria CN's II- XI intact bilaterally and moves all extremities Psychiatric: A+Ox3, euthymic affect Results & Data Results & Data Vital Signs (Past 12 Hours) Vital Signs Temp Pulse Pulse Resp BP Pulse Ox O2 Del Method 11/16/24 11:22 37.3 C 90 18 149/86 H 98 Room Air 11/16/24 10:29 87 11/16/24 07:42 37.2 C 82 18 141/85 H 97 Room Air 11/16/24 07:15 Room Air 11/16/24 02:51 37.1 C 82 17 147/83 H 99 Room Air
[2024-11-16] MEDS: THIAMINE HCL 250 MG in SODIUM CHLORIDE 0.9% 50 ML IV SCH (16:23)
[2024-11-16] MEDS: ZOLPIDEM TARTRATE 5 MG TAB PO ONE (21:10)
[2024-11-17] MEDS: ACETAMINOPHEN 325 MG TAB PO PRN (03:55)
[2024-11-17 07:07] LABS: Hematocrit (blood only) 39.6 % (37.0-47.0); Hemoglobin 13.7 g/dl (12.0-16.0); Immature Granulocytes # (auto) 0.03 K/uL (0.01-0.20); Immature Granulocytes % (auto) 0.3 %; Mean Corpuscular Hemoglobin 30.4 pg (25.0-34.0); Mean Corpuscular Volume 88.0 fL (80.0-100.0); Platelet Count 221 K/uL (130-400); RDW Standard Deviation 40.8 fL (36.4-46.3); Red Blood Count 4.50 M/uL (4.20-5.40); White Blood Count 10.61 K/ul (4.8-10.8)
[2024-11-17 07:31] LABS: Alanine Aminotransferase 31.0 U/L (7-52); Albumin Globulin Ratio 1.9 (0.9-2); Alkaline Phosphatase 48.0 U/L (34-104); Anion Gap 6.0 (3-11); Bilirubin,Total 0.6 mg/dl (0.2-1.0); Blood Urea Nitrogen 13.0 mg/dl (6-23); Calcium 8.6 mg/dl (8.6-10.3); Carbon Dioxide 26.0 mmol/L (21-32); Chloride 107.0 mmol/L (98-107); Creatinine Clr Calc Pharmacy 131.0 ml/min; Globulin 2.1 gm/dl (2.5-4.0); Glucose 119.0 mg/dl (70-99(Fasting)); Potassium 3.7 mmol/L (3.5-5.1); Sodium 139.0 mmol/L (136-145); Total Protein 6.0 gm/dl (6.0-8.3)
--- NOTE | 2024-11-17 12:07 | Hospitalist Progress Note ---
Date of Service November 17, 2024 Assessment & Plan (1) Breakthrough seizure: Plan: 34F with PMH active polysubstance abuse, seizure disorder who presents for detox. she was discharged from [facility] and sent to rehab facility in area but refused to go. She subsequently had a seizure like episode in the ED #Seizure-like episode #Possible alcohol withdrawal -[facility] no acute pathology Evaluated by neurology who recommended Keppra while on detox; patient refused. EEG ordered but can be done as outpatient. Continue seizure precautions Monitor for alcohol withdrawal Patient is started on scheduled Valium; plan to taper down as symptoms controlled #Fever -No leukocytosis. no evidence of sepsis -Procal is negative -No nuchal rigidity to suggest meningitis/encephalitis -UA clean -CTA chest, CT AP no acute pathology -Likely reactive Blood culture and urine culture negative #Hypernatremia -Resolved with hydration #Hypokalemia -Replace and follow I spent a total of 50 minutes coordinating, documenting, and providing care for this patient excluding time spent in the performance of separately billed services. This included personally reviewing all current laboratories and imaging studies, medical reconciliation, outpatient chart review and discussion with specialists Please note the above document was generated using voice recognition software. It may contain grammatical, syntax or spelling errors. Any formal questions or concerns about the content, text or information contained within the body of this dictation should be directly addressed to the provider for clarification Admission and Anticipated Discharge Date Admission Date: November 15, 2024 Subjective Patient seen and examined at bedside. She is comfortable; not in distress. She denies fever, chills, chest pain, tremors, hallucination or anxiety. Review of Systems Review of Systems: All systems reviewed & are unremarkable except as noted in Subjective Physical Exam Physical Exam: Constitutional: Alert oriented x 3; not in distress. Respiratory: bilateral vesicular breath sound Cardiovascular: RRR, no murmur, no edema Vessels: no JVD or carotid bruit Chest: normal inspection of chest Abdomen: normal bowel sounds, soft, nontender, no hepatosplenomegaly Musculoskeletal: no cyanosis or clubbing, extremities motor strength 5/5 Skin: no rashes, warm and dry normal turgor Neurologic: PERRL, EOMI, accommodation nl, no face palsy, no dysarthria CN's II- XI intact bilaterally and moves all extremities Psychiatric: A+Ox3, euthymic affect Results & Data Results & Data Vital Signs (Past 12 Hours) Vital Signs Temp Pulse Resp BP Pulse Ox O2 Del Method 11/17/24 07:10 36.9 C 75 18 152/86 H 96 Room Air 11/17/24 07:00 Room Air 11/17/24 03:35 36.8 C 98 H 18 150/90 H 97 Room Air
[2024-11-17] MEDS: ONDANSETRON 4 MG OD TAB PO PRN (13:49)
[2024-11-17] MEDS: MELATONIN 3 MG TAB PO PRN (22:56)
[2024-11-17] MEDS: PROMETHAZINE 6.25 MG/50.25 ML BAG IV PRN (22:58)
--- NOTE | 2024-11-18 11:39 | Hospitalist Progress Note ---
Date of Service November 18, 2024 Assessment & Plan (1) Breakthrough seizure: Plan: 34F with PMH active polysubstance abuse, seizure disorder who presents for detox. she was discharged from [facility] and sent to rehab facility in area but refused to go. She subsequently had a seizure like episode in the ED #Seizure-like episode #Alcohol withdrawal -[facility] no acute pathology Evaluated by neurology who recommended Keppra while on detox; patient refused. EEG ordered but can be done as outpatient. Patient is on tapering dose of Valium with good control of the withdrawal symptoms. She has not had any sign or symptoms of seizures since admission. She will not be needing any antiseizure medications at discharge. #Fever -No leukocytosis. no evidence of sepsis -Procal is negative -No nuchal rigidity to suggest meningitis/encephalitis -UA clean -CTA chest, CT AP no acute pathology -Likely reactive Blood culture and urine culture negative #Hypernatremia -Resolved with hydration #Hypokalemia -Replace and follow Dispositionpatient is medically stable for transfer to rehab facility. I spent a total of 50 minutes coordinating, documenting, and providing care for this patient excluding time spent in the performance of separately billed services. This included personally reviewing all current laboratories and imaging studies, medical reconciliation, outpatient chart review and discussion with specialists Please note the above document was generated using voice recognition software. It may contain grammatical, syntax or spelling errors. Any formal questions or concerns about the content, text or information contained within the body of this dictation should be directly addressed to the provider for clarification Admission and Anticipated Discharge Date Admission Date: November 15, 2024 Subjective Patient seen and examined at bedside. Comfortable; not in distress. Denies fever, chills, chest pain, shortness of breath, abdominal pain or urinary symptoms. No significant overnight events Review of Systems Review of Systems: All systems reviewed & are unremarkable except as noted in Subjective Physical Exam Physical Exam: Constitutional: Alert oriented x 3; not in distress. Respiratory: bilateral vesicular breath sound Cardiovascular: RRR, no murmur, no edema Vessels: no JVD or carotid bruit Chest: normal inspection of chest Abdomen: normal bowel sounds, soft, nontender, no hepatosplenomegaly Musculoskeletal: no cyanosis or clubbing, extremities motor strength 5/5 Skin: no rashes, warm and dry normal turgor Neurologic: PERRL, EOMI, accommodation nl, no face palsy, no dysarthria CN's II- XI intact bilaterally and moves all extremities Psychiatric: A+Ox3, euthymic affect Results & Data Results & Data Vital Signs (Past 12 Hours) Vital Signs Temp Pulse Resp BP Pulse Ox O2 Del Method 11/18/24 07:57 36.8 C 103 H 19 123/81 97 Room Air
[2024-11-18] MEDS: LORazepam 1 MG TAB PO PRN (11:51)
[2024-11-18] MEDS: LOPERAMIDE HCL 2 MG CAP PO PRN (11:51)
--- NOTE | 2024-11-18 13:23 | Discharge Summary ---
Date of Service November 18, 2024 Admission HPI Per Admitting Provider History obtained from ED provider and records. Limited history from patient secondary to obtunded state. Medical history significant for substance abuse. Patient is a homeless resident of [place] who was recently confined at [facility] for detox from tranq and opioids. Patient claims she was discharged from [facility] and directed to rehab facility via taxi with an address in [place], [place]. EMS called outside [facility] because patient found to have possible seizures outside [facility]. Seizure terminated by Versed. Upon arrival at the ER, patient told staff that she gets seizures whenever in detox. Denied EtOH abuse to ED provider. Patient complaining of achy headache, chest pain/SOB, abdominal pain. Demanding for narcotics and benzos as per ED provider. IV droperidol administered at the ER. Patient currently obtunded. Medical History/Surgical History/Family History/Personal/Social history : Could not be obtained due to obtunded state Admission Exam Per Admitting Provider GENERAL: Obtunded, underweight, looks older than stated age, tremulous, no respiratory distress SKIN: Normal color, warm HEENT: [place] palpebral conjunctivae, no ptosis, dry buccal mucosa NECK : Supple, no tenderness CHEST : Decreased breath sounds, no tenderness HEART : Tachycardic, no obvious murmurs ABDOMEN: Some distention, central abdominal tenderness EXTREMITIES : No LE swelling/tenderness, palpable pulses, no other conspicuous deformities noted NEUROLOGIC : Obtunded, no facial asymmetry, tremulous, gait and stance not assessed Principal Diagnosis Polysubstance abuse Alcohol withdrawal Discharge Exam Constitutional: Alert oriented x 3; not in distress. Respiratory: bilateral vesicular breath sound Cardiovascular: RRR, no murmur, no edema Vessels: no JVD or carotid bruit Chest: normal inspection of chest Abdomen: normal bowel sounds, soft, nontender, no hepatosplenomegaly Musculoskeletal: no cyanosis or clubbing, extremities motor strength 5/5 Skin: no rashes, warm and dry normal turgor Neurologic: PERRL, EOMI, accommodation nl, no face palsy, no dysarthria CN's II- XI intact bilaterally and moves all extremities Psychiatric: A+Ox3, euthymic affect Discharge Data Allergies Allergy/AdvReac Type Severity Reaction Status Date / Time hydrocodone [From Vicodin] AdvReac Intermediate Nausea Verified 11/14/24 23:00 Consultations 11/14/24 22:55 ED Decision to Admit Stat 11/15/24 03:30 Consult Neurology Routine 11/15/24 04:24 HIM [Consult Health Information Management] Routine Ordered Studies 11/14/24 23:12 CT head/brain wo con Stat 11/14/24 23:13 CT Abd and Pelvis [CT abd pelvis IV con only] Stat CT angio chest PE protocol Stat 11/15/24 07:02 MRI Brain [MR brain seizure wo/w con] Routine Hospital Course (1) Breakthrough seizure: 34F with PMH active polysubstance abuse, seizure disorder who presents for detox. she was discharged from [facility] and sent to rehab facility in area but refused to go. She subsequently had a seizure like episode in the ED #Seizure-like episode #Alcohol withdrawal -[facility] no acute pathology Evaluated by neurology who recommended Keppra while on detox; patient refused. EEG ordered but can be done as outpatient. Patient is on tapering dose of Valium with good control of the withdrawal symptoms. She has not had any sign or symptoms of seizures since admission. She will not be needing any antiseizure medications at discharge. #Fever -No leukocytosis. no evidence of sepsis -Procal is negative -No nuchal rigidity to suggest meningitis/encephalitis -UA clean -CTA chest, CT AP no acute pathology -Likely reactive Blood culture and urine culture negative #Hypernatremia -Resolved with hydration Patient transferred to rehab facility for further management. Please note the above document was generated using voice recognition software. It may contain grammatical, syntax or spelling errors. Any formal questions or concerns about the content, text or information contained within the body of this dictation should be directly addressed to the provider for clarification Total Time Total Time Spent Total Time Spent (In Minutes): 45 Total Time Includes: Examination of the Patient, Discharge Planning, Medication Reconciliation, Communication With Other Providers and Other Discharge Plan Discharge Items Patient Disposition: Home - Self-Care Reason For Visit: SEIZURES, SUBSTANCE WITHDRAWAL Discharge Diagnosis: Alcohol withdrawal Condition on Discharge: Good Activity: Resume your previous activity Non-emergency contact: Primary Care Provider Call non-emergency contact if: you have any medication questions and your symptoms worsen Follow-up/Referrals: PCP,NO [Primary Care Provider] - Diet: Regular Addtl Attending Provider Instructions: Please follow up with PCP after discharge from rehab. Pending Studies at Discharge: No Stand-Alone Forms: My [facility], Smoking Cessation Medications and DC Order Prescriptions: No Action No Known Home Medications Discharge Orders: Discharge Order (Routine); Ordered 11/18/24 Ordered By: Jefferson Quezada Admission Data Admit Date/Time: 11/15/24 03:01 Attending Provider: Jefferson Quezada Admit Provider: Favio Chavarria Primary Care Provider: PCP,NO Other Providers: Favio Chavarria; Ann Frazier; Jax Blackwood; Ann Cabrera; Bairon Valenzuela; Bob Cazares; Tu Brian; Neo Ramirez; Priya Meade; Judah Landaverde; Quinten Mariscal; Ana Godfrey; Foreign Maldonado; Eileen Bates; Neo Mcguire; Mya Rivers; Aure Walker Other Interventions: Discharge Summary Assessment (RN) Last Done: 11/18/24 13:46
--- NOTE | 2024-11-19 05:33 | Electrocardiogram Report ---
Test Reason : Blood Pressure : */* mmHG Vent. Rate : 79 BPM Atrial Rate : 79 BPM P-R Int : 106 ms QRS Dur : 90 ms QT Int : 398 ms P-R-T Axes : 80 49 57 degrees QTcB Int : 456 ms Sinus rhythm with short NC Otherwise normal ECG When compared with ECG of 14-Nov-2024 21:11, Incomplete right bundle branch block is no longer Present Nonspecific T wave abnormality no longer evident in Inferior leads Confirmed by Haider Bradley ([id number]) on 11/19/2024 5:33:33 AM Referred By: REFERRED SELF Confirmed By: Haider Bradley
[2024-11-19 09:57] LABS: 7-Aminoclonaz, Confirm NEGATIVE ng/mL (<25); Hydro-Alp Ur, GC/MS NEGATIVE ng/mL (<25); Hydroxyethylflurazepam, Conf NEGATIVE ng/mL (<50); Hydroxymidazolam Ur, GC/MS 600 ng/mL (<50); Lorazepam, Ur GC/MS 1099 ng/mL (<50); Nordiazepam, Confirm NEGATIVE ng/mL (<50); Norfentanyl, Urine 242.0 ng/mL (<0.5); Oxazepam Ur, GC/MS NEGATIVE ng/mL (<50); Temazepam, Confirm NEGATIVE ng/mL (<50); medMATCH Fentanyl, Urine DNR; medMATCH Norfentanyl, Urine DNR
== END 2024-11-18 15:04 | disposition home or self-care (01) | DRG 896 ==
LOC: ED 20:56 → SUATTDRO 11-15 03:01 → EDINP 11-15 03:01 → 2S 11-15 18:47
DX: B37.9 Candidiasis, unspecified; R56.9 Unspecified convulsions; F17.210 Nicotine dependence, cigarettes, uncomplicated; R50.9 Fever, unspecified; F13.139 Sedative, hypnotic or anxiolytic abuse with withdrawal, unspecified; E43 Unspecified severe protein-calorie malnutrition; E87.0 Hyperosmolality and hypernatremia; E87.6 Hypokalemia; F10.939 Alcohol use, unspecified with withdrawal, unspecified; Z59.00 Homelessness unspecified; F11.13 Opioid abuse with withdrawal; F14.13 Cocaine abuse, unspecified with withdrawal